=== PATIENT | male | born 1940 | race Caucasian/White ===

== ENCOUNTER 2019-11-21 10:38 | Emergency (ER) | payer OTHER, MEDICAID ==
[~2019-11-21] VITALS: Ht 195.6 cm; Wt 100.0 kg
[2019-11-21] MEDS ORDERED: SODIUM CHLORIDE 0.9% 1,000ML IVBOLUS ONE (11:00)
[2019-11-21] MEDS ORDERED: SODIUM CHLORIDE FLUSH 10ML SYR IVF ONE (11:00)
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
[2019-11-21 11:19] LABS: BASOPHILS # (AUTO) 0.13 x10^3/uL (0-0.1); BASOPHILS % (AUTO) 2 % (0-1); EOSINOPHILS # (AUTO) 0.35 x10^3/uL (0-0.4); EOSINOPHILS % (AUTO) 4 % (1-7); LYMPHOCYTES # (AUTO) 1.31 x10^3/uL (1-3.4); LYMPHOCYTES % (AUTO) 16 % (22-44); MD NO; MEAN CORPUSCULAR HGB CONC 31.9 g/dL (33.2-36.2); MEAN CORPUSCULAR VOLUME 81.7 fL (81-97); MEAN PLATELET VOLUME 10.2 fL (7.4-10.4); MONOCYTES # (AUTO) 0.77 x10^3/uL (0.2-0.8); MONOCYTES % (AUTO) 9 % (2-9); NEUTROPHILS # (AUTO) 5.76 x10^3/uL (1.8-6.8); NEUTROPHILS % (AUTO) 69 % (42-75); PLATELET COUNT 212 x10^3/uL (130-400); RED BLOOD COUNT 4.12 x10^6/uL (4.38-5.82); RED CELL DISTRIBUTION WIDTH 16.7 % (9.4-14.8)
[2019-11-21] MEDS ORDERED: LINA5TAB PO (11:30)
[2019-11-21] MEDS ORDERED: GABA300C10 PO (11:30)
[2019-11-21] MEDS ORDERED: VITAMIN B-12 (11:30)
[2019-11-21] MEDS ORDERED: SERT50TA PO (11:30)
[2019-11-21] MEDS ORDERED: ASPI81TA45 PO (11:30)
[2019-11-21] MEDS ORDERED: CETI10TA32 PO (11:30)
[2019-11-21] MEDS ORDERED: ATOR40TA78 PO (11:30)
[2019-11-21] MEDS ORDERED: METO25TA35 PO (11:30)
[2019-11-21] MEDS ORDERED: OLME20TA17 PO (11:30)
[2019-11-21] MEDS ORDERED: PRIM50TA34 PO (11:30)
[2019-11-21] MEDS ORDERED: OMEP20CA20 PO (11:30)
[2019-11-21] MEDS ORDERED: HYDR25TA6 PO (11:30)
[2019-11-21] MEDS ORDERED: DRISDOL (11:30)
[2019-11-21 11:32] LABS: RAPID INFLUENZA A Negative (Negative); RAPID INFLUENZA B Negative (Negative)
[2019-11-21 11:38] LABS: ANION GAP 3 mmol/L (5-15); CALCIUM 8.3 mg/dL (8.5-10.1); CHLORIDE 107 mmol/L (98-107); CREATININE 1.61 mg/dL (0.7-1.3)
[2019-11-21 11:39] LABS: ALANINE AMINOTRANSFERASE 16 U/L (12-78); ALBUMIN 2.7 g/dL (3.4-5.0)
[2019-11-21 11:43] LABS: ALKALINE PHOSPHATASE 68 U/L (45-117); BILIRUBIN,TOTAL 0.3 mg/dL (0.2-1.0); TOTAL PROTEIN 8.1 g/dL (6.4-8.2)
--- NOTE | 2019-11-21 12:41 | NUR ---
PT HAD ONE EPISODE OF EMESIS
[2019-11-21 12:42] VITALS: BP 175/75
--- NOTE | 2019-11-21 13:25 | NUR ---
PT URINATED IN URINAL CLEAR YELLO, 600 ML. UA COLLECTED
[2019-11-21 14:00] LABS: MICROSCOPIC AUTO
[2019-11-21] MEDS ORDERED: NEOSPORIN OINT. PKT 1 PACKET ONE (14:53)
--- NOTE | 2019-11-21 15:01 | NUR ---
LEFT ANKLED DRESSED. PT READY FOR DC. IV REMOVED. VSS
--- NOTE | 2019-11-21 15:01 | NUR ---
Patient/Caregiver given discharge instructions and they have confirmed that they understand the instructions. Patient ambulatory with steady gait.
== END 2019-11-21 15:22 | disposition home or self-care (01) ==
LOC: ED 11:38
DX: Z03.818 Encounter for observation for suspected exposure to other biological agents ruled out (principal); R42 Dizziness and giddiness; R53.1 Weakness; R53.83 Other fatigue; Z86.73 Personal history of transient ischemic attack (TIA), and cerebral infarction without residual deficits; E11.9 Type 2 diabetes mellitus without complications
CPT/HCPCS: 36415; 74022; 80053; 81001; 83880; 85025; 87081; 87400; 87880; 93005; 96360; 96361; 99285; J7030